=== PATIENT | male | born 1945 | race Caucasian/White ===

== ENCOUNTER 2018-08-24 15:39 | Emergency (ER) | payer OTHER, MEDICARE ==
[2018-08-24 15:48] VITALS: BP 136/70; PULSE 70; RESP 16; TEMP 98.5; O2SAT 96
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
--- NOTE | 2018-08-24 17:23 | CT ---
Date of service: 08/24/2018 PROCEDURE: CT scan of the left knee joint without intravenous contrast PROCEDURE: INDICATION: Trauma TECHNIQUE: Multiple axial images were obtained with slice thickness of 2.5 mm. Coronal and sagittal reformatted images were obtained. Iterative reconstruction was used. Radiation dose: Total exam DLP = 289.81 mGy-cm. PROCEDURE: This CT exam was performed using one or more of the following dose reduction techniques: Automated exposure control, adjustment of the mA and/or kV according to patient size, and/or use of iterative reconstruction technique. COMPARISON: Plain radiographs performed earlier the same day. FINDINGS: There is periarticular bone demineralization. No acute displaced fracture. Bone alignment is normal. There is severe tricompartmental degenerative osteoarthrosis with reduced joint spaces, marginal osteophytes and subarticular cystic changes worse in the medial compartment, there is a large subarticular geode in the medial tibial plateau. The visualized muscles and soft tissues are normal. There is a small suprapatellar joint effusion. There is an approximately 6.3 x 2.5 x 5.5 cm multilocular fluid collection medial to the medial compartment with thickening of the medial collateral ligament. IMPRESSION: 1. No acute displaced fracture or dislocation. 2. Apparent large fluid collection medial to the medial compartment. Thickening/edema in the medial collateral ligament. Findings are nonspecific and could be related to trauma infection or inflammation. An MRI of the knee joint is recommended for further characterization.
--- NOTE | 2018-08-24 17:58 | RAD ---
Date of service: 08/24/2018 PROCEDURE: Left Knee Radiographs. HISTORY: Pain. COMPARISON: None. FINDINGS: BONES: Bone alignment and mineralization are normal. There is no acute displaced fracture or bone destruction. JOINTS: There is moderate tricompartmental degenerative osteoarthrosis with reduced joint spaces, marginal osteophytes and tibial spiking, worse in the medial compartment. JOINT EFFUSION: There is a small suprapatellar joint effusion. OTHER FINDINGS: There is soft tissue swelling medial to the medial compartment. IMPRESSION: No acute displaced fracture or dislocation. Soft tissue swelling medial to the medial compartment. Moderate tricompartmental degenerative osteoarthrosis, worse in the medial compartment.
== END 2018-08-24 17:34 | disposition home or self-care (01) ==
LOC: H.ER 15:39
DX: E11.9 Type 2 diabetes mellitus without complications (principal); I10 Essential (primary) hypertension; J45.909 Unspecified asthma, uncomplicated; Z79.82 Long term (current) use of aspirin; E78.00 Pure hypercholesterolemia, unspecified; S89.92XA Unspecified injury of left lower leg, initial encounter